=== PATIENT | female | born 1960 | race Caucasian/White ===

== ENCOUNTER 2021-02-02 09:54 | Emergency (ER) | payer MEDICARE, SELFPAY ==
[2021-02-02 09:55] VITALS: BP 104/60; PULSE 81; RESP 16; TEMP 36.6; O2SAT 100; BMI 20.3
--- NOTE | 2021-02-02 10:06 | EX.ED.VIS.UR ---
HPI HPI - URI History of Present Illness Chief Complaint: Sore Throat Informant: patient Onset/Context/Timing Onset: Days Context: Gradual Onset Timing: Continuous Current Severity: Mild Maximum Severity: Mild Associated Symptoms Associated Symptoms: Positive for Nasal Congestion, Myalgias and Nonproductive cough; Negative for Nausea, Vomiting, Diarrhea, Shortness of Breath, Chest Pain, Hemoptysis and Productive Cough Narrative Narrative: 60-year-old female no sniffing past medical history. Currently on no medications. Last started having sinus congestion and sore throat which has improved. She just feels weak all over with body aches. She is day 6 of her symptoms. She denies any vomiting or diarrhea. No dysuria. She is unvaccinated for Covid. Prior similar symptoms: Yes Recent Illness/Hospitalization: No ROS ROS ED ROS Narrative Body aches. Sore throat resolved. Nonproductive cough. Review of Systems ROS Unobtainable: Denies due to encephalopathy Constitutional Constitutional ED: Denies chills or fever(s) Eyes Eyes: Denies change in vision ENT ENT ED: Reports rhinorrhea and sore throat; Denies ear pain Cardiovascular Cardiovascular: Denies chest pain Respiratory/Chest Respiratory/Chest: Reports cough; Denies dyspnea Gastrointestinal Gastrointestinal: Denies abdominal pain, diarrhea, nausea or vomiting Genitourinary Genitourinary ED: Denies dysuria Musculoskeletal Musculoskeletal: Reports myalgias Integumentary Denies rash Neurologic Neurologic: Denies headache(s) Psychiatric Psychiatric: Denies depression Endocrine Endocrinology: Denies polyuria Hematologic/Lymphatic Hematologic/Lymphatic: Denies easy bruising Allergic/Immunologic Allergic/Immunologic ED: Denies urticaria PFSH PFSH Allergy/AdvReac Type Severity Reaction Status Date / Time No Known Allergies Allergy Verified 02/02/21 09:55 Social History Smoking Status: Never smoker EXAM Physical Exam Narrative Exam Narrative: 52-year-old female no acute distress vital signs stable afebrile pulse ox 100% on room air no hypoxia. Normal. Lungs are clear. Const Vital Signs: 02/02/21 09:55 02/02/21 10:09 Temperature 97.8 F Temperature Source Temporal Pulse Rate 81 Respiratory Rate 16 Respiratory Effort Normal Non-Labored Respiratory Pattern Normal Blood Pressure 104/60 Blood Pressure Mean 74 Pulse Ox 100 Positive well nourished and well developed; Negative for obese, cachectic or contractures General Appearance ED: well developed; Negative for cachectic, contractures, cyanotic, diaphoretic, NAD or pallor Nutritional Appearance: Negative for cachectic or obese HEENT Reports moist mucous membranes normocephalic and atraumatic; Negative for scalp tenderness Face and Sinus: Negative for sinus tenderness External Ear: external ears normal Eyes PERRL and EOMs intact bilaterally Neck no lymphadenopathy, supple, no meningeal signs and no JVD General: Negative for anterior neck swelling Resp normal respiratory effort and clear to auscultation bilaterally Auscultation: Negative for rales, rhonchi or wheezes Cardio S1 normal heart sound, S2 normal heart sound and no murmurs Rate: regular rate Rhythm: regular rhythm GI non-tender, non-distended and no masses Inspection: Negative for abdominal distention Auscultation: normoactive bowel sounds; Negative for hyperactive bowel sounds Palpation: soft; Negative for tender or guarding Back/Spine no CVA tenderness and normal ROM General Back: Negative for CVA tenderness Cervical Spine: Negative for cervical spine tenderness Thoracic Spine / Upper Back: Negative for thoracic spinal tenderness Extremity normal to inspection and full ROM General Extremety ED: Negative for cyanosis or tenderness General Extremity: Negative for cyanosis Neuro oriented x3 Sensorium / Orientation: alert, oriented to person, oriented to place and oriented to time; Negative for orientation impaired, lethargic or stuporous Motor Exam: strength 5/5 throughout Psych mental status grossly normal Mood & Affect: Negative for depressed or tearful Skin General Skin Exam: Negative for jaundice or pallor Lesions: no lesions Rashes: no rashes MDM MDM MDM Narrative Medical decision making narrative: 60-year-old female with viral syndrome type symptoms. Covid test is being obtained. I do not think she needs any imaging. M at 10:35 AM unchanged. Lab Data Lab results narrative: Rapid Covid test is negative. Discussed with patient and she did not want a PCR sent. Discharge Plan Triage Chief Complaint: Sore Throat ED Provider: Gasper Dai Dx/Rx/DC Orders Clinical Impression: Viral syndrome Instructions: ED URI, Viral, No Abx (Adult) Primary Care Provider: Care Physician,No Primary Referrals: Sean Ashford MD [STAFF PHYSICIAN] - 1 Week if not improving NOT,DEFINED [NON-STAFF] - Activity Restrictions/Additional Instructions: Plenty of fluids and rest. Motrin and Tylenol for body aches and any fevers. Follow-up with your doctor if not improving. Return emergency department if a lot worse. Disposition Disposition: Home, Self Care
[2021-02-02 10:40] VITALS: BP 118/63; PULSE 72; RESP 16; O2SAT 97
== END 2021-02-02 10:40 | disposition home or self-care (01) ==
LOC: ED 10:19
PROVIDERS: Emergency Provider Emergency Medicine
DX: J02.9 Acute pharyngitis, unspecified (principal); B34.9 Viral infection, unspecified
CPT/HCPCS: 87426; 99282

== ENCOUNTER 2021-02-10 10:07 | Inpatient (IN) | payer MEDICARE, SELFPAY ==
[2021-02-10] VITALS (15 sets, daily range): BP systolic 89–124; BP diastolic 53–73; PULSE 58–76; RESP 18–29; TEMP 36.8–37.4; O2SAT 93–100; BMI 30.2; BMI 31.4
--- NOTE | 2021-02-10 10:23 | EKG12_ITS ---
Test Reason : SOB Blood Pressure : / mmHG Vent. Rate : 060 BPM Atrial Rate : 060 BPM P-R Int : 144 ms QRS Dur : 084 ms QT Int : 412 ms P-R-T Axes : 057 062 005 degrees QTc Int : 412 ms Normal sinus rhythm Low voltage QRS Borderline ECG Confirmed by DARA CAMPBELL, GENESIS ([id number]), general expeditor MICHEAL BLAND ([id number]) on 02/15/2021 10:11:37 AM Referred By: KIMBERLEY Confirmed By:GENESIS DIAMOND MD
--- NOTE | 2021-02-10 10:26 | EX.ED.DYSGE1 ---
HPI History of Present Illness Chief Complaint: Weakness Detail of Chief Complaint: Generalized weakness, dyspnea, dyspnea on exertion cough Informant: patient Onset/Context/Timing Onset: Weeks (Onset of illness 2 to 3 weeks ago) Context: Sudden Onset Timing: Continuous Quality: Upper respiratory symptoms and loss of appetite Location: Respiratory Current Severity: Mild Maximum Severity: Severe Worsened by: Walking. Patient states she has to stop after walking 5 to 10 feet. Relieved by: Nothing Associated Symptoms Associated Symptoms: Change in taste, mild headache, slightly productive cough, subjective fever Narrative Narrative: Patient is a 60-year-old woman on no medication no allergies non-smoker who was seen on February 02. Rapid Covid at that time was negative. Patient declined PCR test. No imaging or laboratory studies were done at that time. Patient presents because of increased shortness of breath. She is only able to walk 5 to 10 feet before becoming short of breath. She denies history of PE or DVT. She denies any risk factors for PE or DVT. She denies leg pain, swelling discoloration. She states she has no appetite. Things taste different but she has not lost her taste or smell. She does report mild bifrontal head discomfort. She denies photophobia, change in vision or blurred vision. Denies ringing of ears or decreased hearing. She states initially she had rhinorrhea and congestion she no longer does. She denies sore throat. She denies chest pain. She does report dyspnea dyspnea on exertion. She does have a cough. The cough is essentially nonproductive. She does report nausea without vomiting or diarrhea. She denies dysuria, frequency, urgency or hematuria. She denies rash. Prior similar symptoms: Yes Recent Illness/Hospitalization: Yes PFSH PFS Home Medications NK 02/10/21 [History Last Taken Unknown] Allergy/AdvReac Type Severity Reaction Status Date / Time No Known Allergies Allergy Verified 02/10/21 10:11 Social History (Updated 02/10/21 @ 10:[address] Toby Ramos MD) household members: spouse Smoking Status: Never smoker substance use type: does not use ROS ROS ED Constitutional Constitutional ED: Reports chills, fever(s), subjective and sweats; Denies weight loss Eyes Eyes: Denies blurry vision, change in vision or diplopia ENT ENT ED: Denies ear pain, rhinorrhea or sore throat Cardiovascular Cardiovascular: Denies chest pain, orthopnea, palpitations or paroxysmal nocturnal dyspnea Respiratory/Chest Respiratory/Chest: Reports cough, dyspnea and dyspnea on exertion; Denies orthopnea, paroxysmal nocturnal dyspnea or sputum Gastrointestinal Gastrointestinal: Reports nausea; Denies abdominal pain, diarrhea or vomiting Genitourinary Genitourinary ED: Denies dysuria, hematuria or urinary frequency Musculoskeletal Musculoskeletal: Reports arthralgias and myalgias; Denies back pain or neck pain Integumentary Denies Abrasions or rash Neurologic Neurologic: Reports headache(s) and weakness; Denies paresthesias Endocrine Endocrinology: Denies polydipsia, polyphagia or polyuria Hematologic/Lymphatic Hematologic/Lymphatic: Denies easy bleeding or easy bruising EXAM Physical Exam Const Vital Signs: 02/10/21 10:07 02/10/21 10:30 02/10/21 10:50 Temperature 98.6 F Temperature Source Temporal Pulse Rate 76 72 Respiratory Rate 18 29 H Respiratory Effort Short of Breath Respiratory Pattern Tachypnea Normal Blood Pressure 89/53 L Blood Pressure Mean 65 Pulse Ox 93 Oxygen Delivery Method Non-Rebreather Nasal Cannula Oxygen Flow Rate (L/min) 2 02/10/21 11:55 02/10/21 12:40 02/10/21 13:54 Temperature 98.2 F Temperature Source Oral Pulse Rate 71 67 58 L Respiratory Rate 18 24 H 23 H Respiratory Effort Respiratory Pattern Blood Pressure 109/67 103/63 107/65 Blood Pressure Mean 81 76 79 Pulse Ox 95 95 97 Oxygen Delivery Method Nasal Cannula Nasal Cannula Nasal Cannula Oxygen Flow Rate (L/min) 1 1 1 Positive well nourished, well developed and obese General Appearance ED: well developed and other Patient is tachypneic and has mild pressor distress in spite of a respiratory rate of 18 documented by triage. Patient's pulse ox was 86% on room air. She is hypotensive. She does appear ill. ; Negative for cyanotic, diaphoretic or pallor Nutritional Appearance: obese HEENT Reports TM's clear and dry mucous membranes Negative for trauma or tenderness Tympanic Membrane ED: Yes TM's clear Mouth ED: Yes dry mucous membranes Mouth: dry mucous membranes Eyes PERRL and EOMs intact bilaterally General Eye ED: Negative for pale conjunctiva or scleral icterus Neck no lymphadenopathy, supple and no JVD Chest Wall palpation of chest normal Resp No normal respiratory effort and No clear to auscultation bilaterally Auscultation: rales bilateral mid and lower and wheezes expiratory wheezes and scattered wheezes (With forced expiration only) Cardio regular rate, regular rhythm, S1 normal heart sound, S2 normal heart sound and no murmurs GI normal to inspection, nondistended, normoactive bowel sounds, non-tender and non-distended; Negative for hepatosplenomegaly Auscultation: normoactive bowel sounds and hypoactive bowel sounds Palpation: soft Back/Spine no CVA tenderness Thoracic Spine / Upper Back: Negative for paraspinal muscle tenderness Extremity normal to inspection Extremity Narrative: There is no asymmetry, swelling, discoloration, leg vein distention, palpable cords or tenderness along the distribution of the deep venous system. General Extremety ED: Negative for edema or tenderness General Extremity: Negative for edema Neuro oriented x3 and CN's II-XII intact bilaterally Sensorium / Orientation: alert Psych mental status grossly normal Skin no rashes or lesions noted and no wounds General Skin Exam: Negative for jaundice or pallor MDM MDM MDM Narrative Medical decision making narrative: Clinically patient has bilateral pneumonia. She is hypotensive. There is concern for Covid. Since there is concern for Covid she only received a 500 cc bolus initially. Sepsis work-up was undertaken. She may have a concomitant bacterial on top of Covid pneumonia/viral pneumonia. Since the rapid was negative a PCR was ordered. Albuterol was ordered as well as since she had slight wheezing with forced expiration, only. Patient's hypotension improved with fluid bolus. Will give dose of antibiotics for commune acquired pneumonia. This would be discontinued with the Covid PCR was positive. Chest x-ray is consistent with Covid pneumonia. Radiologist rotation also makes comment consistent with Covid pneumonia. Patient's Covid test returned positive we will treat with Decadron and not antibiotics. Lab Data Attestation: I reviewed the patient's lab results. Lab results narrative: Patient is neutropenic. This would suggest that this is a viral infection and possibly Covid. Labs: Laboratory Results - last 24 hr 02/10/21 02/10/21 02/10/21 10:30 10:30 10:30 WBC 3.8 L RBC 4.58 Hgb 13.3 Hct 39.8 MCV 86.9 MCH 29.0 MCHC 33.4 RDW Std Deviation 40.3 RDW Coeff of Ceci 12.8 Plt Count 173 MPV 10.1 Immature Gran % (Auto) 1.100 H Neut % (Auto) 81.7 H Lymph % (Auto) 12.3 L [place] % (Auto) 4.3 Eos % (Auto) 0.3 Baso % (Auto) 0.3 Absolute Neuts (auto) 3.1 Absolute Lymphs (auto) 0.46 L Nucleated RBC % 0 Diff Path Review May foll Sodium 140 Potassium 3.6 Chloride 104 Carbon Dioxide 29.0 Anion Gap 7 BUN 15 Creatinine 0.94 Estim Creat Clear Calc 56.33 Est GFR (MDRD) Af Amer 79 Est GFR (MDRD) Non-Af 65 BUN/Creatinine Ratio 16.0 Glucose 110 H Lactic Acid 1.5 Calcium 8.4 L Total Bilirubin 0.60 AST 68 H ALT 68 H Alkaline Phosphatase 88 Total Protein 7.4 Albumin 3.1 L Globulin 4.3 H Albumin/Globulin Ratio 0.7 L COVID-19 ([facility]) 02/10/21 10:30 WBC RBC Hgb Hct MCV MCH MCHC RDW Std Deviation RDW Coeff of Ceci Plt Count MPV Immature Gran % (Auto) Neut % (Auto) Lymph % (Auto) [place] % (Auto) Eos % (Auto) Baso % (Auto) Absolute Neuts (auto) Absolute Lymphs (auto) Nucleated RBC % Diff Path Review Sodium Potassium Chloride Carbon Dioxide Anion Gap BUN Creatinine Estim Creat Clear Calc Est GFR (MDRD) Af Amer Est GFR (MDRD) Non-Af BUN/Creatinine Ratio Glucose Lactic Acid Calcium Total Bilirubin AST ALT Alkaline Phosphatase Total Protein Albumin Globulin Albumin/Globulin Ratio COVID-19 ([facility]) Detected Radiography Chest X-Ray - ED: 1 View and Read by ED Physician (Syncope was interpreted by me at 1200Patient has bilateral peripheral interstitial infiltrates consistent with Covid.) Diagnostic Testing: Clinical Impression(s) from Imaging Studies Chest X-Ray 02/10/21 11:35 IMPRESSION: Bilateral pulmonary infiltrates worse on the left side. Pneumonitis associated with Covid should be ruled out. Electronically Signed: Lorenzo Mcclellan MD at 12:18 EST , Service support , EKG Initial EKG: Attestation: I personally reviewed and interpreted this EKG as follows: Interpretation: Sinus Rhythm (Normal sinus rhythm with a rate of sixty. [place] interval is 144 ms per cures duration 84 ms. QT duration 412 ms. There is evidence of low voltage. There is a flipped T wave in lead III which is a normal variant.) Critical Care Time Critical Care Time: Yes Critical care time (excluding procedures): 30-74 minutes (33 minutes), Including time spent: (History, physical, documentation, interpretation laboratory results, and initiation of therapy.), Discussing w/Patient &/or Family/[employer], Discussing w/Consultants and Arranging Admission or Transfer Discharge Plan Triage Chief Complaint: Weakness ED Provider: Toby Ramos Dx/Rx/DC Orders Clinical Impression: Pneumonia due to 2019-nCoV, Acute respiratory failure with hypoxia, Acute hypotension Prescriptions: No Action NK RF: 0 Primary Care Provider: Care Physician,No Primary Referrals: Care Physician,No Primary [Primary Care Provider] - Disposition Disposition: Acute Care [facility]
[2021-02-10 10:46] LABS: Absolute Lymphocyte Count 0.46 X10^3/uL (0.83-4.51); Absolute Neutrophil Count 3.1 X10^3/uL (2.0-7.7); Basophil# 0.01 X10^3/uL; Basophil% 0.3 % (0-1); Eosinophil# 0.01 X10^3/uL; Eosinophils% 0.3 % (0-5); Hematocrit 39.8 % (37-47); Hemoglobin 13.3 g/dL (12.0-15.0); Lymphocyte # 0.46 X10^3/ul (0.83-4.51); Lymphocyte % 12.3 % (19-41); Mean Corp Hgb Conc 33.4 g/dL (32-36); Mean Corpuscular Volume 86.9 fL (81-99); Mean Platelet Vol. 10.1 fl (6.2-12.0); Monocyte# 0.16 X10^3/uL; Monocyte% 4.3 % (0-10); NRBC Flagged by Analyzer 0 % (0-5); Neutrophil # 3.07 X10^3/uL (2.7-7.7); Neutrophil % 81.7 % (47-70); POSITIVE DIFFERENTIAL YES; POSITIVE MORPHOLOGY YES; Platelet Count 173 K/mm3 (150-450); RBC Distribution Width CV 12.8 % (11.6-14.6); RBC Distribution Width SD 40.3 fl (35.1-43.9); Red Blood Count 4.58 M/mm3 (4.2-5.4); White Blood Count 3.8 K/mm3 (4.4-11.0)
[2021-02-10 10:47] LABS: Differential Indicated SCAN CRITERIA MET
[2021-02-10] MEDS: Albuterol 2.5 MG/3 ML VIAL.NEB. INHALATION (10:47)
[2021-02-10 11:10] LABS: ALB/GLOB Ratio 0.7 RATIO (0.9-2.4); AST(SGOT) 68 U/L (15-37); Alanine Aminotransfer ALT/SGPT 68 U/L (13-56); Albumin, Serum 3.1 g/dL (3.2-5.0); Alkaline Phosphatase 88 U/L (45-117); Anion Gap 7 (5-15); BUN 15 mg/dL (7-18); Calcium,Total 8.4 mg/dL (8.5-10.1); Chloride 104 mmol/L (98-107); Creatinine, Serum 0.94 mg/dL (0.55-1.02); EST Glomerular Filtration Rate 65 mL/min (>60); Est Glom Filt Rate - Afr Amer 79 mL/min (>60); Estimated Creatinine Clearance 56.33 ml/min; Globulin 4.3 g/dL (2.2-4.2); Glucose 110 mg/dL (74-106); Lactic Acid 1.5 mmol/L (0.4-1.9); Potassium 3.6 mmol/L (3.5-5.1); Protein, Total 7.4 g/dL (6.4-8.2); Sodium Level 140 mmol/L (136-145)
--- NOTE | 2021-02-10 11:35 | RAD_ITS ---
STUDY: X-RAY CHEST REASON FOR EXAM: Female, 60 years old. Dyspnea, cough bilateral rales TECHNIQUE: Single AP portable view of the chest. COMPARISON: None. FINDINGS: EKG electrodes are seen. There are bilateral patchy pulmonary infiltrates worse on the left side. There is a tendency toward lateral peripheral distribution. Pneumonitis associated with Covid should be ruled out There is no demonstrated pleural abnormality. Normal size heart. Normal mediastinum and verónica. Normal visualized pulmonary arteries. Normal visualized aortic arch and descending thoracic aorta. There are diffuse degenerative changes of the visualized thoracic spine. Normal visualized ribs, clavicles, and shoulders. There is no demonstrated abnormality of the visualized soft tissue structures of the upper abdomen. RAD/Chest 1 View (Portable) IMPRESSION: Bilateral pulmonary infiltrates worse on the left side. Pneumonitis associated with Covid should be ruled out. Electronically Signed: Lorenzo Mcclellan MD at 12:18 EST , Service support ,
[2021-02-10] MEDS: dexAMETHasone 4 MG Tablet 6 MG PO (12:38)
--- NOTE | 2021-02-10 16:30 | PCS.PANDOC ---
PANDEMIC DOCUMENTATION INITIATED: Date: 10/05/2020 Time: 190
--- NOTE | 2021-02-10 20:01 | PCM.HP.STD ---
HPI - General General Date of Admission: 02/10/21 HPI Narrative ARMAAN MORROW, is a 60 F who presents with ongoing weakness for 2 weeks and shortness of breath, with hypoxia. The patient was seen last week here in the ED for similar respiratory issues and had a rapid Covid test which was negative and reportedly declined PCR test. She was discharged to home but due to the weakness and worsening SOB she returned. The patient has had no recorded fevers but does have a dry cough. She has no GI complaints and she has not taken any medical therapies prior to this for presumed Covid infection. She has tried drinking herbal teas. Upon work-up in the ER she had a PCR which was positive for Covid and chest x-ray showed bilateral infiltrates consistent with COVID pneumonia. She is not a smoker or drinker and does not have any significant comorbidities Family history was reviewed and noncontributory [facility] Medical History no medical history Home Medications dextromethorphan polistirex [Delsym 12 hour] 10 ml PO Q12H 02/10/21 [History Last Taken 02/10/21] Allergy/AdvReac Type Severity Reaction Status Date / Time No Known Allergies Allergy Verified 02/10/21 10:11 Surgical History (Updated 02/10/21 @ 16:39 by Nichole Baker) History of hysterectomy Social History (Updated 02/10/21 @ 10:[address] Toby Ramos MD) household members: spouse Smoking Status: Never smoker substance use type: does not use Vital Signs Vital Signs Vital Signs: 02/10/21 10:07 02/10/21 10:30 02/10/21 10:50 Temperature 98.6 F Temperature Source Temporal Pulse Rate 76 72 Respiratory Rate 18 29 H Respiratory Effort Short of Breath Respiratory Depth Respiratory Pattern Tachypnea Normal Blood Pressure 89/53 L Blood Pressure Mean 65 Blood Pressure Source Blood Pressure Position Blood Pressure Location Pulse Ox 93 Oxygen Delivery Method Non-Rebreather Nasal Cannula Oxygen Flow Rate (L/min) 2 02/10/21 11:55 02/10/21 12:40 02/10/21 13:54 Temperature 98.2 F Temperature Source Oral Pulse Rate 71 67 58 L Respiratory Rate 18 24 H 23 H Respiratory Effort Respiratory Depth Respiratory Pattern Blood Pressure 109/67 103/63 107/65 Blood Pressure Mean 81 76 79 Blood Pressure Source Blood Pressure Position Blood Pressure Location Pulse Ox 95 95 97 Oxygen Delivery Method Nasal Cannula Nasal Cannula Nasal Cannula Oxygen Flow Rate (L/min) 1 1 1 02/10/21 15:00 02/10/21 15:50 02/10/21 16:30 Temperature 98.2 F 98.4 F Temperature Source Oral Oral Pulse Rate 72 70 61 Respiratory Rate 26 H 25 H 18 Respiratory Effort Normal Non-Labored Respiratory Depth Normal Respiratory Pattern Normal Blood Pressure 124/73 H 117/65 105/66 Blood Pressure Mean 90 82 79 Blood Pressure Source Monitor Blood Pressure Position Semi-Fowlers Blood Pressure Location Left Arm Pulse Ox 95 96 94 Oxygen Delivery Method Nasal Cannula Nasal Cannula Nasal Cannula Oxygen Flow Rate (L/min) 1 1 3 02/10/21 16:52 02/10/21 19:02 Temperature Temperature Source Pulse Rate 58 L 65 Respiratory Rate Respiratory Effort Respiratory Depth Respiratory Pattern Blood Pressure Blood Pressure Mean Blood Pressure Source Blood Pressure Position Blood Pressure Location Pulse Ox Oxygen Delivery Method Oxygen Flow Rate (L/min) Weight Weight: 182 lb 12.211 oz Body Mass Index (BMI) 31.4 Physical Exam Const alert and no apparent distress HEENT normocephalic and head/scalp atraumatic Eyes PERRL and EOMs intact bilaterally Resp normal respiratory effort Resp Narrative: no rales or rhonchi, I did appreciate crackles at base of left lobe. Auscultation: crackles Cardio regular rate and regular rhythm GI normal to inspection, nondistended, normoactive bowel sounds, soft to palpation and non-tender Neuro Sensorium / Orientation: awake and alert Speech: speech normal Psych affect normal Results Lab / Micro Data Result Diagrams: 02/10/21 10:30 02/10/21 10:30 Labs: Laboratory Results - last 24 hr 02/10/21 10:30: WBC 3.8 L, RBC 4.58, Hgb 13.3, Hct 39.8, MCV 86.9, MCH 29.0, MCHC 33.4, RDW Std Deviation 40.3, RDW Coeff of Ceci 12.8, Plt Count 173, MPV 10.1, Immature Gran % (Auto) 1.100 H, Neut % (Auto) 81.7 H, Lymph % (Auto) 12.3 L, [place] % (Auto) 4.3, Eos % (Auto) 0.3, Baso % (Auto) 0.3, Absolute Neuts (auto) 3.1, Absolute Lymphs (auto) 0.46 L, Nucleated RBC % 0, Diff Path Review May foll 02/10/21 10:30: Sodium 140, Potassium 3.6, Chloride 104, Carbon Dioxide 29.0, Anion Gap 7, BUN 15, Creatinine 0.94, Estim Creat Clear Calc 56.33, Est GFR (MDRD) Af Amer 79, Est GFR (MDRD) Non-Af 65, BUN/Creatinine Ratio 16.0, Glucose 110 H, Calcium 8.4 L, Total Bilirubin 0.60, AST 68 H, ALT 68 H, Alkaline Phosphatase 88, Total Protein 7.4, Albumin 3.1 L, Globulin 4.3 H, Albumin/Globulin Ratio 0.7 L 02/10/21 10:30: Lactic Acid 1.5 02/10/21 10:30: COVID-19 ([facility]) Detected Radiology Impression Chest X-Ray 02/10/21 11:35 IMPRESSION: Bilateral pulmonary infiltrates worse on the left side. Pneumonitis associated with Covid should be ruled out. Electronically Signed: Lorenzo Mcclellan MD at 12:18 EST , Service support , Assessment & Plan Assessment/Plan (1) Acute respiratory failure with hypoxia: (2) Pneumonia due to 2019-nCoV: PLAN: Acute hypoxic respiratory failure with COVID pneumonia infection -Continue contact precautions given positive test for COVID -Incentive spirometry, duo nebs every 6 and chest physiotherapy -Continue oxygen therapy, Maintain SaO2 >90% -No signs of bacterial infection at this time. -Low suspicion for PE at this time -Patient is past remdesivir given onset of symptoms > 10 days ago -Continue Decadron daily x 9 more days. -Not volume overloaded at this time however would not give IV fluids, encourage p.o. intake -Transcient hypotension responded well to small bolus. There is no further hypotension. Diet: regular DVT prophylaxis: Lovenox We had an extended discussion regarding CODE STATUS . At this time she is full code, however the patient does have documents at home and I encouraged her to bring those in and discuss with physician further. Hari Robison MD Charges/Coding Visit Charges Inpatient E&M: 08051 Init Hosp L2
[2021-02-10] MEDS: Ipratropium/Albuterol Sulfate 3 ML AMPUL.NEB INHALATION (20:58)
[2021-02-11] VITALS (13 sets, daily range): BP systolic 95–107; BP diastolic 60–68; PULSE 47–77; RESP 16–21; TEMP 36.7–37.1; O2SAT 82–98
[2021-02-11 07:15] LABS: Absolute Lymphocyte Count 0.71 X10^3/uL (0.83-4.51); Absolute Neutrophil Count 2.1 X10^3/uL (2.0-7.7); Hematocrit 33.1 % (37-47); Hemoglobin 11.5 g/dL (12.0-15.0); Lymphocyte # 0.71 X10^3/ul (0.83-4.51); Lymphocyte % 21.8 % (19-41); Mean Corp Hgb Conc 34.7 g/dL (32-36); Mean Corpuscular Hgb 29.9 pg (27.0-32.0); Mean Corpuscular Volume 86.2 fL (81-99); Mean Platelet Vol. 10.1 fl (6.2-12.0); Monocyte# 0.37 X10^3/uL; Monocyte% 11.3 % (0-10); NRBC Flagged by Analyzer 0 % (0-5); Neutrophil # 2.14 X10^3/uL (2.7-7.7); Neutrophil % 65.7 % (47-70); POSITIVE MORPHOLOGY YES; Platelet Count 189 K/mm3 (150-450); RBC Distribution Width CV 12.7 % (11.6-14.6); Red Blood Count 3.84 M/mm3 (4.2-5.4); White Blood Count 3.3 K/mm3 (4.4-11.0)
[2021-02-11 07:19] LABS: Differential Indicated SCAN CRITERIA MET
[2021-02-11] MEDS: Ipratropium/Albuterol Sulfate 3 ML AMPUL.NEB INHALATION ×3 (07:22→21:10)
[2021-02-11 07:43] LABS: Anion Gap 9 (5-15); BUN 16 mg/dL (7-18); Calcium,Total 8.3 mg/dL (8.5-10.1); Chloride 108 mmol/L (98-107); Creatinine, Serum 0.73 mg/dL (0.55-1.02); EST Glomerular Filtration Rate 87 mL/min (>60); Est Glom Filt Rate - Afr Amer 105 mL/min (>60); Estimated Creatinine Clearance 72.54 ml/min; Glucose 94 mg/dL (74-106); Magnesium 2.3 mg/dL (1.6-2.6); Potassium 4.1 mmol/L (3.5-5.1); Sodium Level 143 mmol/L (136-145)
[2021-02-11 08:17] LABS: Atypical Lymphocyte 1+ %
[2021-02-11 08:18] LABS: Platelet Estimate ADEQUATE (ADEQ); Red Cell Morphology NORM C+C NORMAL (NORM C&C)
[2021-02-11] MEDS: dexAMETHasone 4 MG Tablet 6 MG PO (09:28)
[2021-02-11] MEDS: Enoxaparin 40 MG/0.4 ML Syringe SC (09:28)
--- NOTE | 2021-02-11 12:47 | CASEMGMT ---
RN CM called patient for initial transition planning/care coordination assessment. PASHA ALONSO introduced self and role at [facility]. Patient is alert and oriented. Patient willing to participate in assessment and is able to answer all questions appropriately. Care providers, pharmacy, and demographics verified. Patient wishes to discharge home, denies need for home health at this time. Patient states she has no further needs or concerns at this time. CM to follow for discharge planning needs that may arise. PCP: No PCP, CM to provide list Specialists: none Preferred Pharmacy: [facility] retail at discharge. Insurance: self pay Prescription Benefit: none Living Will/HPOA: yes, ferny Mortensen LNOK: Living Arrangements: Patient states she lives with in a 2 story home. Patient states she is independent and able to ambulate stairs. Transportation: self, DME/HHC: Patient states she has raised toilet and grab bars at home. Patient denies previous HHC or SNF. Patient states she has no preferences for DME. Disposition Plan: Patient to discharge home with family support and follow-up plans in place. Will monitor for home oxygen at discharge. Akiko OSORIO, RN, CM
--- NOTE | 2021-02-11 13:48 | CASEMGMT ---
RN CM NOTE: Green sheet placed on chart for O2, if needed @ d/c. Speedy BSN RN CM
[2021-02-11 14:01] LABS: Pathologist Review Reviewed
--- NOTE | 2021-02-11 16:53 | PN.HOSP_ITS ---
Subjective Subjective Doing better than when she came in. Maintaining her oxygen sats on 3 L nasal cannula Objective Data Objective Data Vital Signs: Vital Signs Temp Pulse Resp BP Pulse Ox 98.6 F 63 18 98/63 96 02/11/21 15:25 02/11/21 15:25 02/11/21 15:25 02/11/21 15:25 02/11/21 15:25 Oxygen Flow Rate (L/min) [ 6 AMBULATING with Oxygen #2] Oxygen Flow Rate (L/min) [ 5 AMBULATING with Oxygen #1] Oxygen Flow Rate (L/min) [At 4 REST with Oxygen] Oxygen Flow Rate (L/min) 3 Oxygen Delivery Method Nasal Cannula Weight: 182 lb 12.211 oz Body Mass Index (BMI) 31.4 Intake & Output: Intake and Output for Last 24 Hours 02/10/21 02/11/21 02/12/21 03:59 03:59 03:59 Intake Total 800 / 800 780 / 780 Balance 800 / 800 780 / 780 Lab / Micro Data Result Diagrams: 02/11/21 07:00 02/11/21 07:00 Labs: Laboratory Results - last 24 hr 02/10/21 10:30: Diff Path Review Reviewed 02/11/21 07:00: WBC 3.3 L, RBC 3.84 L, Hgb 11.5 L, Hct 33.1 L, MCV 86.2, MCH 29.9, MCHC 34.7, RDW Std Deviation 40.0, RDW Coeff of Ceci 12.7, Plt Count 189, MPV 10.1, Immature Gran % (Auto) 1.200 H, Neut % (Auto) 65.7, Lymph % (Auto) 21.8, [place] % (Auto) 11.3 H, Eos % (Auto) 0.0, Baso % (Auto) 0.0, Absolute Neuts (auto) 2.1, Absolute Lymphs (auto) 0.71 L, Nucleated RBC % 0, Atypical Lymphocytes 1+, Platelet Estimate ADEQUATE, RBC Morphology NORM C+C 02/11/21 07:00: Sodium 143, Potassium 4.1, Chloride 108 H, Carbon Dioxide 26.0, Anion Gap 9, BUN 16, Creatinine 0.73, Estim Creat Clear Calc 72.54, Est GFR (MDRD) Af Amer 105, Est GFR (MDRD) Non-Af 87, BUN/Creatinine Ratio 22.0 H, Glucose 94, Calcium 8.3 L, Magnesium 2.3 Physical Exam Const alert, oriented x3 and no apparent distress General Appearance: cooperative HEENT normocephalic and moist oral mucous membranes Eyes PERRL, EOMs intact bilaterally and conjunctivae normal Neck supple and no JVD Resp normal respiratory effort, no retractions and no use of accessory muscles Auscultation: crackles; Negative for rales, rhonchi or wheezes Cardio regular rate, regular rhythm, S1 normal heart sound, S2 normal heart sound and no murmurs GI soft to palpation, non-tender and non-distended; Negative for hepatosplenomegaly Extremity no clubbing, cyanosis or edema Skin no rashes or lesions noted Neuro no focal motor deficits and no sensory deficits noted Psych affect normal Appearance: appropriate Assessment & Plan Assessment/Plan (1) Acute respiratory failure with hypoxia: (2) Pneumonia due to 2019-nCoV: PLAN: 1. Acute hypoxic respiratory failure secondary to COVID-19 pneumonia ?Continue to encourage incentive spirometry and proning ?Continue with Decadron, symptoms started about 2 weeks ago therefore she is outside the window for remdesivir ?There is low suspicion for PE however Covid is hypercoagulable earful obtain a D-dimer and if elevated proceed with a CTA of the chest ?Ambulatory pulse ox demonstrated the need of 6 L to maintain 84% therefore this combined with her crackles on exam will provide her with a little bit of Lasix DVT: Lovenox Charges/Coding Visit Charges Inpatient E&M: 80667 Subs Hosp L2
[2021-02-11] MEDS: Furosemide 20 MG/2 ML VIAL IV (17:14)
[2021-02-11] MEDS: 0.9% Saline Lock 10 ML Syringe IV (17:14)
--- NOTE | 2021-02-11 18:31 | CM.ED ---
SW Note Referral Source: PCU SW Referral Reason: Self Pay Patient is self pay. TALITA spoke to Nichole Patel and requested that she give patient the self pay packet. Nichole said to put it in her box and she will give it to patient. TALITA remains available if additional needs arise. Plan: Self Pay packet provided Preeti HELLER
[2021-02-11 18:56] LABS: D-Dimer Quantitative (DVT/PE) 1.89 FEU/ug/m (0.27-0.49)
--- NOTE | 2021-02-11 19:39 | CT_ITS ---
EXAM: CT ANGIOGRAPHY CHEST WITHOUT AND WITH INTRAVENOUS CONTRAST CLINICAL INDICATION: Elevated D-dimer TECHNIQUE: Helically acquired angiography images were obtained of the chest without and with intravenous contrast. CTDIvol = ( 11.07 ) mGy, DLP = ( 377.36 ) mGycm This CT exam was performed using one or more of the following dose reduction techniques: automated exposure control, adjustment of the mA and/or kV according to patient size, and/or use of iterative reconstruction technique. This report was created using [employer] report generation technology. MIP reconstructed images were created and reviewed. CONTRAST: IV 100mL Isovue-370 COMPARISON: None. FINDINGS: PULMONARY ARTERIES: No PE. Normal in caliber. No evidence of pulmonary embolism. AORTA: Unremarkable. Normal in caliber. No evidence of dissection. GREAT VESSELS OF AORTIC ARCH: Unremarkable. Normal in caliber. No evidence of dissection. LUNGS AND PLEURAL SPACES: Bilateral multilobar infiltrates. No mass. No pleural effusion or thickening. No pneumothorax. HEART: Unremarkable. Heart size is normal. No pericardial effusion. No signs of right heart strain, ratio of right ventricle to left ventricle measures less than 1. MEDIASTINUM: Unremarkable. No mediastinal or hilar adenopathy. Esophagus is unremarkable. No hiatal hernia. THYROID: Unremarkable. No thyroid lesions. BONES/JOINTS: Unremarkable. No suspicious lytic or blastic abnormality. CT/CTA Chest W/WO Contrast IMPRESSION: Bilateral multilobar pneumonia with no PE. Electronically Signed: Humberto Saba MD at 21:38 EST Tel , Service support ,
[2021-02-12] VITALS (14 sets, daily range): BP systolic 100–116; BP diastolic 62–72; PULSE 48–64; RESP 16–20; TEMP 36.8–37.4; O2SAT 84–97
[2021-02-12 06:35] LABS: Absolute Lymphocyte Count 0.92 X10^3/uL (0.83-4.51); Absolute Neutrophil Count 3.4 X10^3/uL (2.0-7.7); Basophil# 0.02 X10^3/uL; Basophil% 0.4 % (0-1); Hematocrit 34.5 % (37-47); Hemoglobin 11.4 g/dL (12.0-15.0); Lymphocyte # 0.92 X10^3/ul (0.83-4.51); Lymphocyte % 19.1 % (19-41); Mean Corpuscular Hgb 28.9 pg (27.0-32.0); Mean Corpuscular Volume 87.6 fL (81-99); Mean Platelet Vol. 10.3 fl (6.2-12.0); Monocyte# 0.47 X10^3/uL; Monocyte% 9.8 % (0-10); NRBC Flagged by Analyzer 0 % (0-5); Neutrophil # 3.35 X10^3/uL (2.7-7.7); Neutrophil % 69.5 % (47-70); POSITIVE MORPHOLOGY YES; Platelet Count 240 K/mm3 (150-450); RBC Distribution Width CV 12.3 % (11.6-14.6); RBC Distribution Width SD 39.6 fl (35.1-43.9); Red Blood Count 3.94 M/mm3 (4.2-5.4); White Blood Count 4.8 K/mm3 (4.4-11.0)
[2021-02-12 06:41] LABS: Differential Indicated SCAN CRITERIA MET
[2021-02-12 06:48] LABS: Differential Comment SCANNED
[2021-02-12 07:01] LABS: Anion Gap 6 (5-15); BUN 25 mg/dL (7-18); BUN/Creat Ratio 29.6 RATIO (10-20); Calcium,Total 8.3 mg/dL (8.5-10.1); Chloride 107 mmol/L (98-107); Creatinine, Serum 0.84 mg/dL (0.55-1.02); EST Glomerular Filtration Rate 73 mL/min (>60); Est Glom Filt Rate - Afr Amer 89 mL/min (>60); Estimated Creatinine Clearance 63.04 ml/min; Glucose 102 mg/dL (74-106); Magnesium 2.1 mg/dL (1.6-2.6); Potassium 4.2 mmol/L (3.5-5.1); Sodium Level 142 mmol/L (136-145)
[2021-02-12] MEDS: Ipratropium/Albuterol Sulfate 3 ML AMPUL.NEB INHALATION ×2 (07:25→20:33)
[2021-02-12] MEDS: 0.9% Saline Lock 10 ML Syringe IV (10:17)
[2021-02-12] MEDS: Enoxaparin 40 MG/0.4 ML Syringe SC (10:17)
[2021-02-12] MEDS: dexAMETHasone 4 MG Tablet 6 MG PO (10:18)
--- NOTE | 2021-02-12 13:20 | PN.HOSP_ITS ---
Subjective Subjective Patient seen and examined. She had no active complaints and felt much better. Patient was on only 1 L of oxygen. Plan was to potentially discharge her home. However with ambulation her oxygen dropped significantly and he took 6 L of oxygen to get her up to 90%. We will therefore hold discharge for today. She has otherwise remained hemodynamically stable. Objective Data Objective Data Vital Signs: Vital Signs Temp Pulse Resp BP Pulse Ox 98.9 F 64 18 102/62 96 02/12/21 10:25 02/12/21 11:00 02/12/21 10:25 02/12/21 10:25 02/12/21 12:22 Oxygen Flow Rate (L/min) [At 0 REST on Room Air] Oxygen Flow Rate (L/min) [ 6 AMBULATING with Oxygen #2] Oxygen Flow Rate (L/min) [ 2 AMBULATING with Oxygen #1] Oxygen Flow Rate (L/min) [At 2 REST with Oxygen] Oxygen Flow Rate (L/min) 2 Oxygen Delivery Method High Flow Weight: 182 lb 12.211 oz Body Mass Index (BMI) 31.4 Intake & Output: Intake and Output for Last 24 Hours 02/10/21 02/11/21 02/12/21 23:59 23:59 23:59 Intake Total 500 / 800 1640 / 1640 360 / 360 Balance 500 / 800 1640 / 1640 360 / 360 Lab / Micro Data Result Diagrams: 02/12/21 06:20 02/12/21 06:20 Labs: Laboratory Results - last 24 hr 02/10/21 10:30: Diff Path Review Reviewed 02/11/21 17:54: D-Dimer Quant (PE/DVT) 1.89 H* 02/12/21 06:20: WBC 4.8, RBC 3.94 L, Hgb 11.4 L, Hct 34.5 L, MCV 87.6, MCH 28.9, MCHC 33.0, RDW Std Deviation 39.6, RDW Coeff of Ceci 12.3, Plt Count 240, MPV 10.3, Immature Gran % (Auto) 1.200 H, Neut % (Auto) 69.5, Lymph % (Auto) 19.1, [place] % (Auto) 9.8, Eos % (Auto) 0.0, Baso % (Auto) 0.4, Absolute Neuts (auto) 3.4, Absolute Lymphs (auto) 0.92, Nucleated RBC % 0, Differential Comment SCANNED 02/12/21 06:20: Sodium 142, Potassium 4.2, Chloride 107, Carbon Dioxide 29.0, Anion Gap 6, BUN 25 H, Creatinine 0.84, Estim Creat Clear Calc 63.04, Est GFR (MDRD) Af Amer 89, Est GFR (MDRD) Non-Af 73, BUN/Creatinine Ratio 29.6 H, Glucose 102, Calcium 8.3 L, Magnesium 2.1 Radiography Diagnostic Testing: Radiology Impression Chest CTA 02/11/21 19:39 IMPRESSION: Bilateral multilobar pneumonia with no PE. Electronically Signed: Humberto Saba MD at 21:38 EST Tel , Service support , Physical Exam Const alert, oriented x3 and no apparent distress Exam Limitations: no limitations HEENT head/scalp atraumatic and moist oral mucous membranes Head and Scalp: normocephalic Eyes PERRL, EOMs intact bilaterally and conjunctivae normal Neck no lymphadenopathy, supple and no JVD Resp Resp Narrative: Diminished breath sounds bibasilarly. No wheezes or crackles. on 1L of oxygen. Cardio regular rate, regular rhythm, S1 normal heart sound, S2 normal heart sound and no murmurs GI normal to inspection, nondistended, normoactive bowel sounds, soft to palpation and non-tender Extremity normal to inspection, full ROM and no clubbing, cyanosis or edema Peripheral Pulses: Yes pulses 2+ throughout Skin no rashes or lesions noted Neuro oriented x3, CN's II-XII intact bilaterally and moves all extremities Sensorium / Orientation: awake and alert Psych Psych Narrative: flat affect Assessment & Plan Assessment/Plan (1) Pneumonia due to 2019-nCoV: (2) Acute respiratory failure with hypoxia: PLAN: #Acute hypoxic respiratory failure due to covid 19 pneumonia * Is on 1 L today. However with ambulation she required 6 L of oxygen to get up to just 90%. * Titrate oxygen to maintain saturation above 90%. Out of window for remdesivir. * Did get some Lasix to help with diuresis and to help maintain an euvolemic state. * I do think it is prudent to keep patient for another day to further optimise her lung function. * #Elevated D-dimer: D-dimer was 1.89. Likely due to Covid. On lovenox. #DVT prophylaxis; lovenox Charges/Coding Visit Charges Inpatient E&M: 50524 Subs Hosp L2
[2021-02-13] VITALS (9 sets, daily range): BP systolic 100–102; BP diastolic 54–64; PULSE 43–65; RESP 16–18; TEMP 36.9–37.1; O2SAT 87–97
[2021-02-13 06:05] LABS: Absolute Lymphocyte Count 1.17 X10^3/uL (0.83-4.51); Absolute Neutrophil Count 3.4 X10^3/uL (2.0-7.7); Basophil# 0.01 X10^3/uL; Basophil% 0.2 % (0-1); Eosinophil# 0.01 X10^3/uL; Eosinophils% 0.2 % (0-5); Hematocrit 33.3 % (37-47); Hemoglobin 11.1 g/dL (12.0-15.0); Lymphocyte # 1.17 X10^3/ul (0.83-4.51); Lymphocyte % 22.7 % (19-41); Mean Corp Hgb Conc 33.3 g/dL (32-36); Mean Corpuscular Hgb 29.4 pg (27.0-32.0); Mean Corpuscular Volume 88.3 fL (81-99); Mean Platelet Vol. 10.3 fl (6.2-12.0); Monocyte# 0.48 X10^3/uL; Monocyte% 9.3 % (0-10); NRBC Flagged by Analyzer 0 % (0-5); Neutrophil # 3.38 X10^3/uL (2.7-7.7); Neutrophil % 65.5 % (47-70); POSITIVE MORPHOLOGY YES; Platelet Count 233 K/mm3 (150-450); RBC Distribution Width CV 12.6 % (11.6-14.6); RBC Distribution Width SD 40.2 fl (35.1-43.9); Red Blood Count 3.77 M/mm3 (4.2-5.4); White Blood Count 5.2 K/mm3 (4.4-11.0)
[2021-02-13 06:06] LABS: Differential Indicated SCAN CRITERIA MET
[2021-02-13 06:30] LABS: Anion Gap 4 (5-15); BUN 26 mg/dL (7-18); BUN/Creat Ratio 28.4 RATIO (10-20); Calcium,Total 8.3 mg/dL (8.5-10.1); Chloride 110 mmol/L (98-107); Creatinine, Serum 0.91 mg/dL (0.55-1.02); EST Glomerular Filtration Rate 67 mL/min (>60); Est Glom Filt Rate - Afr Amer 81 mL/min (>60); Estimated Creatinine Clearance 58.19 ml/min; Glucose 89 mg/dL (74-106); Magnesium 2.1 mg/dL (1.6-2.6); Potassium 4.2 mmol/L (3.5-5.1); Sodium Level 144 mmol/L (136-145)
[2021-02-13 06:31] LABS: Differential Comment SCANNED
[2021-02-13] MEDS: Ipratropium/Albuterol Sulfate 3 ML AMPUL.NEB INHALATION ×2 (07:07→13:51)
[2021-02-13] MEDS: dexAMETHasone 4 MG Tablet 6 MG PO (09:02)
[2021-02-13] MEDS: Enoxaparin 40 MG/0.4 ML Syringe SC (09:02)
--- NOTE | 2021-02-13 12:21 | PCM.DC.SUM ---
Providers Date of Admission: 02/10/21 Primary Care Physician: Tasha Primary Care Phys Reason For Visit: COVID pneumonia Diagnosis Discharge Diagnosis (1) Pneumonia due to 2019-nCoV: Status: Acute Code(s): U07.1 - COVID-19; J12.82 - Pneumonia due to coronavirus disease 2019 (2) Acute respiratory failure with hypoxia: Status: Acute Code(s): J96.01 - Acute respiratory failure with hypoxia Medications at Discharge Home Medications dextromethorphan polistirex [Delsym 12 hour] 10 ml PO Q12H 02/10/21 apixaban [Eliquis] 2.5 mg PO BID #28 tab 02/13/21 dexamethasone 6 mg PO DAILY #7 tab 02/13/21 Hospital Course Operations None Procedures None Summary of Care Provided Minutes Spent on Discharge: 45 Hospital Course: Patient is a 60-year-old female no significant past medical history was admitted through the ED on 02/10/2021 with complaint of worsening shortness of breath and weakness which have been going on for about 2 weeks. Patient had been seen in the ED a few days prior and had had a negative Covid antigen test. At that time she refused a PCR test. She was discharged home but subsequently had worsening shortness of breath as well as a dry cough. She however denied any fever. Arrival in the ED, PCR test for Covid was positive and chest x-ray showed bilateral infiltrates consistent with Covid. She was admitted and managed for acute hypoxic respiratory failure due to COVID-19 pneumonia. Her D-dimer was also elevated at 1.89 but CTA of the chest was negative for PE. Patient was out of window for remdesivir. Patient shortness of breath gradually improved and she was weaned down to 1 L of oxygen. With ambulation she required 4 L of oxygen. She was discharged on 02/13/2021 on p.o. prednisone to complete a 10-day course. She was also discharged on p.o. Eliquis 2.5 mg twice daily for 2 weeks as thromboprophylaxis in light of elevated D-dimer. She is to follow-up with her primary care doctor in 1 to 2 weeks. She is to remain in isolation till February 22, 2021 to complete a 20-day isolation since symptoms started. Patient seen and examined prior to discharge. She had no active complaints. Review of systems otherwise negative. Labs and vitals reviewed. Home medication reviewed and reconciled. Physical Exam Const alert, oriented x3 and no apparent distress General Appearance: cooperative Exam Limitations: no limitations HEENT normocephalic, head/scalp atraumatic and moist oral mucous membranes Eyes PERRL, EOMs intact bilaterally and conjunctivae normal Neck no lymphadenopathy, supple and no JVD Resp normal respiratory effort, no retractions and no use of accessory muscles Resp Narrative: Diminished breath sounds bibasilarly. No wheezes or crackles. on 1L of oxygen. Auscultation: crackles; Negative for rales, rhonchi or wheezes Cardio regular rate, regular rhythm, S1 normal heart sound, S2 normal heart sound and no murmurs GI normal to inspection, nondistended, normoactive bowel sounds, soft to palpation, non-tender and non-distended; Negative for hepatosplenomegaly Extremity normal to inspection, full ROM and no clubbing, cyanosis or edema Skin no rashes or lesions noted Neuro oriented x3, CN's II-XII intact bilaterally, moves all extremities, no focal motor deficits and no sensory deficits noted Sensorium / Orientation: awake and alert Speech: speech normal Psych affect normal Psych Narrative: flat affect Appearance: appropriate Weight / BMI Weight Weight: 182 lb 12.211 oz Body Mass Index (BMI) 31.4 ABG / Lab / Microbiology Data Result Diagrams: 02/13/21 05:40 02/13/21 05:40 Laboratory: Laboratory Results - last 24 hr 02/13/21 05:40: WBC 5.2, RBC 3.77 L, Hgb 11.1 L, Hct 33.3 L, MCV 88.3, MCH 29.4, MCHC 33.3, RDW Std Deviation 40.2, RDW Coeff of Ceci 12.6, Plt Count 233, MPV 10.3, Immature Gran % (Auto) 2.100 H, Neut % (Auto) 65.5, Lymph % (Auto) 22.7, [place] % (Auto) 9.3, Eos % (Auto) 0.2, Baso % (Auto) 0.2, Absolute Neuts (auto) 3.4, Absolute Lymphs (auto) 1.17, Nucleated RBC % 0, Differential Comment SCANNED 02/13/21 05:40: Sodium 144, Potassium 4.2, Chloride 110 H, Carbon Dioxide 30.0, Anion Gap 4 L, BUN 26 H, Creatinine 0.91, Estim Creat Clear Calc 58.19, Est GFR (MDRD) Af Amer 81, Est GFR (MDRD) Non-Af 67, BUN/Creatinine Ratio 28.4 H, Glucose 89, Calcium 8.3 L, Magnesium 2.1 D/C Instructions Discharge Diet: No restrictions Discharge Activity: Return to Normal Activity Weight Bearing Status: Weight bearing as tolerated Call your doctor if you observe: Shortness of breath, Dizziness, Swelling in the ankles and Chest pain Meaningful Use Info Meaningful Use Diagnoses (Choose all that apply): None applicable Discharge Plan Admission Admit Date/Time: 02/10/21 20:10 Primary Reason for Your Visit: acute hypoxic respiratory failure due to COVID Attending Provider: Yohana Ordoñez Primary Care Provider: Care PhysicianTasha Primary Instructions Additional Instructions / Restrictions: remain in isolation till February 22, 2021 to complete a 20 day course of isolation Discharge Orders/Prescriptions Prescriptions: New dexamethasone 4 mg Tablet 6 mg PO DAILY Qty: 7 RF: 0 Eliquis 2.5 mg tablet 2.5 mg PO BID Qty: 28 RF: 0 Continued dextromethorphan polistirex [Delsym 12 hour] 30 mg/5 mL Suspension,Extended Rel 12 Hr 10 ml PO Q12H RF: 0 Referrals / Follow Up: Care Physician,No Primary [Primary Care Provider] - Disposition Disposition (needs filled in before D/C Order can be placed): Home, Self Care Charges/Coding Visit Charges Inpatient E&M: 54613 Disch Hosp
--- NOTE | 2021-02-25 14:10 | CASEMGMT ---
This RN CM received call back from pt after message left for D/C f/u phone call. Pt states has been doing well since discharge and states no questions regarding d/c instructions/medications. Pt states has been wearing home oxygen and was provided info for [facility] for f/u, voices understanding. Pt states has been checking oxygen level at home and it has been good. Pt voices no further questions/concerns/needs. SStaten RN CM
== END 2021-02-13 15:20 | disposition home or self-care (01) | DRG 177 ==
LOC: ED 15:17 → PCU 16:27
PROVIDERS: Family Medicine; Admitting Provider Hospitalist; Emergency Provider Emergency Medicine; Visit Provider Student in an Organized Health Care Education/Training Program
DX: U07.1 COVID-19 (principal); J12.82 Pneumonia due to coronavirus disease 2019; J96.01 Acute respiratory failure with hypoxia; I95.9 Hypotension, unspecified; R79.1 Abnormal coagulation profile; Z79.01 Long term (current) use of anticoagulants
CPT/HCPCS: 36415; 71045; 71275; 80048; 80053; 83605; 83735; 85025; 85379; 87635; 93005; 94640; 94667; 94668; 97110; 97116; 97162; 99251; 99285; Q9967; U0005; A4216; G0463; J1940; U0003

== ENCOUNTER 2021-03-03 14:21 | Emergency (ER) | payer MEDICARE, SELFPAY ==
[2021-03-03] VITALS (7 sets, daily range): BP systolic 108–145; BP diastolic 64–78; PULSE 88–97; RESP 16–25; TEMP -12.8–37.8; O2SAT 95–98; BMI 31.9
--- NOTE | 2021-03-03 14:44 | EKG12_ITS ---
Test Reason : CP Blood Pressure : / mmHG Vent. Rate : 088 BPM Atrial Rate : 088 BPM P-R Int : 130 ms QRS Dur : 076 ms QT Int : 338 ms P-R-T Axes : 049 046 -18 degrees QTc Int : 408 ms Normal sinus rhythm ST & T wave abnormality, consider inferior ischemia Abnormal ECG Confirmed by VIRGIE CAMPBELL, ROBEL ([id number]), food editor MICHEAL BLAND ([id number]) on 03/04/2021 1:40:13 PM Referred By: EVITA Confirmed By:HIREN GARVIN MD
--- NOTE | 2021-03-03 14:55 | ED.VIS.CHEST ---
HPI History of Present Illness Chief Complaint: Chest Pain Informant: patient and spouse/S.O. Onset/Context/Timing Onset: Days Activity at onset: gradual Timing: Continuous Current Severity: Mild Maximum Severity: Mild Narrative Narrative: 60-year-old female recent hospitalization for COVID pneumonitis and was discharged on . She had a 4-day admission. She is currently on home oxygen. She was worked up while in the hospital and did not have a pulmonary embolus. She was on Decadron that is since run out. She states she has had recurrent shortness of breath with squeezing discomfort. Denies any hemoptysis. Has never had a DVT or PE and other than her COVID states she is healthy. She denies any leg swelling. Prior Similar Symptoms: Yes Recent Illness/Hospitalization: Yes CVD Risk Factors: Negative for Hypertension, Diabetes, Hypercholesterolemia and Smoking PE Risk Factors: Positive for Recent Immobilization; Negative for Recent Travel/Surgery, Prior DVT or PE, Cancer and OCP + Smoking + >/=35 TAD Risk Factors: Negative for Marfan's Syndrome [facility] Medical History Acute respiratory failure with hypoxia Pneumonia due to 2018-nCoV Home Medications dextromethorphan polistirex [Delsym 12 hour] 10 ml PO Q12H 02/10/21 [History Last Taken 02/10/21] apixaban [Eliquis] 2.5 mg PO BID #28 tab 02/13/21 [Rx Last Taken Unknown] apixaban [Eliquis] 2.5 mg PO BID #28 tab 02/13/21 [Rx Last Taken Unknown] dexamethasone 6 mg PO DAILY #7 tab 02/13/21 [Rx Last Taken Unknown] dexamethasone [Decadron] 6 mg PO DAILY #7 tab 02/13/21 [Rx Last Taken Unknown] dexamethasone [Decadron] 6 mg PO DAILY 9 Days #9 tab 03/03/21 [Rx Last Taken Unknown] Allergy/AdvReac Type Severity Reaction Status Date / Time No Known Allergies Allergy Verified 03/03/21 14:21 Surgical History History of hysterectomy Social History household members: spouse Smoking Status: Never smoker substance use type: does not use ROS ROS ED ROS Narrative Shortness of breath. Chest pain. Review of Systems ROS Unobtainable: Denies due to encephalopathy Constitutional Constitutional ED: Denies fever(s) Eyes Eyes: Denies none ENT ENT ED: Denies ear pain, rhinorrhea or sore throat Cardiovascular Cardiovascular: Reports as per HPI and chest pain Respiratory/Chest Respiratory/Chest: Reports dyspnea; Denies cough, dyspnea on exertion or sputum Gastrointestinal Gastrointestinal: Denies abdominal pain, diarrhea, nausea or vomiting Genitourinary Genitourinary ED: Denies dysuria Musculoskeletal Musculoskeletal: Denies myalgias Integumentary Denies rash Neurologic Neurologic: Denies headache(s) Psychiatric Psychiatric: Denies depression Endocrine Endocrinology: Denies polyuria Hematologic/Lymphatic Hematologic/Lymphatic: Denies easy bruising Allergic/Immunologic Allergic/Immunologic ED: Denies urticaria EXAM Physical Exam Narrative Exam Narrative: 32-year-old female status post COVID admitted and discharged on . Currently on no medications. Complaining of lower chest discomfort and shortness of breath. Had a negative CTA of her chest for pulmonary emboli when she was hospitalized. Const Vital Signs: 03/03/21 14:22 03/03/21 14:31 03/03/21 14:56 Temperature 97.2 F L 8.9 F L Temperature Source Temporal Temporal Pulse Rate 91 89 Respiratory Rate 25 H 22 H Respiratory Effort Short of Breath Blood Pressure 130/76 H 108/64 Blood Pressure Mean 94 78 Pulse Ox 97 98 98 Oxygen Delivery Method Room Air Room Air Room Air 03/03/21 15:26 03/03/21 15:31 03/03/21 16:02 Temperature 98.9 F 100.1 F H 99.6 F H Temperature Source Temporal Oral Temporal Pulse Rate 97 95 Respiratory Rate 18 16 Respiratory Effort Blood Pressure 112/73 116/74 Blood Pressure Mean 86 88 Pulse Ox 98 95 Oxygen Delivery Method Room Air Room Air Positive well nourished, well developed and obese; Negative for cachectic, contractures or unkempt General Appearance ED: well developed and NAD; Negative for unkempt, cachectic, contractures or pallor Nutritional Appearance: obese; Negative for cachectic HEENT Reports moist mucous membranes normocephalic and atraumatic; Negative for trauma or tenderness Eyes PERRL and EOMs intact bilaterally General Eye ED: Negative for pale conjunctiva or scleral icterus Neck no lymphadenopathy, supple and no JVD General: Negative for tenderness Chest Wall inspection of chest normal and palpation of chest normal Chest: Negative for tenderness Resp normal respiratory effort Effort and Inspection: respiratory distress Cardio regular rate, regular rhythm, S1 normal heart sound, S2 normal heart sound and no murmurs Rate: Negative for bradycardia or tachycardic Rhythm: Negative for abnormal rhythm GI normal to inspection, nondistended, normoactive bowel sounds, soft to palpation, non-tender, non-distended and no masses; Negative for hepatosplenomegaly Auscultation: Negative for hyperactive bowel sounds Palpation: Negative for splenomegaly Back/Spine no CVA tenderness General Back: Negative for CVA tenderness Extremity normal to inspection General Extremety ED: Negative for edema or tenderness General Extremity: Negative for edema Neuro oriented x3 Sensorium / Orientation: awake, oriented to person, oriented to place and oriented to time Motor Exam: strength 5/5 throughout Psych mental status grossly normal Appearance: Negative for unkempt Attitude: No agitated Mood & Affect: Negative for depressed or tearful Skin no rashes or lesions noted and no wounds General Skin Exam: Negative for jaundice or pallor MDM MDM MDM Narrative Medical decision making narrative: 60-year-old female complaining of dyspnea. Recent hospitalization for COVID. Undergo cardiac work-up. Repeat exam patient is doing well at 4:45 PM. Had a long discussion with her and family member in the room. She has had a prior CTA which was negative. I think she needs to be placed back on steroids. Close follow-up. She knows to return if feeling worse. Lab Data Attestation: I reviewed the patient's lab results. Lab results narrative: CBC shows a white count of 10. Hemoglobin 9.7. Hematocrit 31. Platelets 235. Electrolytes unremarkable gap of 7 normal BUN and creatinine. Glucose 140 troponin 3. Labs: Laboratory Results - last 24 hr 03/03/21 03/03/21 14:30 14:30 WBC 10.7 RBC 3.42 L Hgb 9.7 L Hct 31.0 L MCV 90.6 MCH 28.4 MCHC 31.3 L RDW Std Deviation 44.6 H RDW Coeff of Ceci 13.5 Plt Count 235 MPV 9.6 Immature Gran % (Auto) 1.000 H Neut % (Auto) 85.6 H Lymph % (Auto) 6.8 L Geary % (Auto) 5.3 Eos % (Auto) 1.1 Baso % (Auto) 0.2 Absolute Neuts (auto) 9.1 H Absolute Lymphs (auto) 0.73 L Nucleated RBC % 0 Sodium 139 Potassium 3.6 Chloride 103 Carbon Dioxide 29.0 Anion Gap 7 BUN 12 Creatinine 0.89 Estim Creat Clear Calc 59.50 Est GFR (MDRD) Af Amer 84 Est GFR (MDRD) Non-Af 69 BUN/Creatinine Ratio 13.5 Glucose 140 H Calcium 8.9 Troponin I High Sens 3 Radiography Chest X-Ray - ED: 1 View, Read by ED Physician, Heart, Mediastinum, Bony Structures, No Acute Disease, Right Infiltrate and Left Infiltrate Diagnostic Testing: Clinical Impression(s) from Imaging Studies Chest X-Ray 03/03/21 15:04 IMPRESSION: Persistent bilateral pulmonary infiltrates. There has been essentially no change. Electronically Signed: Lorenzo Mcclellan MD at 15:18 EST , Service support , Chest x-ray portable, single view, interpreted by myself the radiologist shows bilateral infiltrates consistent with her prior chest x-ray 2 weeks ago when she had COVID pneumonitis. No significant change. Rhythm Strip Rhythm Strip: Sinus Rhythm Rate: 88 Ectopy: None EKG Initial EKG: Attestation: I personally reviewed and interpreted this EKG as follows: Interpretation: Sinus Rhythm and No Acute Injury Pattern Comments: Normal sinus rhythm rate 88 no acute signs of NV nor ischemia. Discharge Plan Triage Chief Complaint: Chest Pain ED Provider: Gasper Dai Dx/Rx/DC Orders Clinical Impression: COVID-19, Anemia Instructions: Human Coronaviruses Prescriptions: New dexamethasone [Decadron] 6 mg tablet 6 mg PO DAILY 9 Days Qty: 9 RF: 0 No Action dextromethorphan polistirex [Delsym 12 hour] 30 mg/5 mL Suspension,Extended Rel 12 Hr 10 ml PO Q12H RF: 0 dexamethasone 4 mg Tablet 6 mg PO DAILY Qty: 7 RF: 0 Eliquis 2.5 mg tablet 2.5 mg PO BID Qty: 28 RF: 0 dexamethasone [Decadron] 6 mg tablet 6 mg PO DAILY Qty: 7 RF: 0 Eliquis 2.5 mg tablet 2.5 mg PO BID Qty: 28 RF: 0 Primary Care Provider: Care Physician,No Primary Referrals: Altagracia Solitario [NON-STAFF] - 1 Week Care Physician,No Primary [Primary Care Provider] - Activity Restrictions/Additional Instructions: Plenty of fluids and rest. Alternate Motrin and Tylenol for pain and body aches. Fever and chills. Decadron daily to decrease inflammation in your lungs. Follow-up with your primary care provider to ensure you are improving or return to emergency department if feeling worse. Disposition Disposition: Home, Self Care
--- NOTE | 2021-03-03 15:04 | RAD_ITS ---
STUDY: X-RAY CHEST REASON FOR EXAM: Female, 60 years old. Chest pain TECHNIQUE: Single AP portable view of the chest. COMPARISON: Comparison is made with prior study dated 02/10/2021. FINDINGS: EKG electrodes are seen. Persistent bilateral pulmonary infiltrates. There have been essentially no change. There is no demonstrated pleural abnormality. Normal size heart. Normal mediastinum and verónica. Normal visualized pulmonary arteries. Normal visualized aortic arch and descending thoracic aorta. There are diffuse degenerative changes of the visualized thoracic spine. Normal visualized ribs, clavicles, and shoulders. There is no demonstrated abnormality of the visualized soft tissue structures of the upper abdomen. RAD/Chest 1 View (Portable) IMPRESSION: Persistent bilateral pulmonary infiltrates. There has been essentially no change. Electronically Signed: Lorenzo Mcclellan MD at 15:18 EST , Service support ,
[2021-03-03 15:09] LABS: Absolute Lymphocyte Count 0.73 X10^3/uL (0.83-4.51); Absolute Neutrophil Count 9.1 X10^3/uL (2.0-7.7); Basophil# 0.02 X10^3/uL; Basophil% 0.2 % (0-1); Eosinophil# 0.12 X10^3/uL; Eosinophils% 1.1 % (0-5); Hemoglobin 9.7 g/dL (12.0-15.0); Lymphocyte # 0.73 X10^3/ul (0.83-4.51); Lymphocyte % 6.8 % (19-41); Mean Corp Hgb Conc 31.3 g/dL (32-36); Mean Corpuscular Hgb 28.4 pg (27.0-32.0); Mean Corpuscular Volume 90.6 fL (81-99); Mean Platelet Vol. 9.6 fl (6.2-12.0); Monocyte# 0.56 X10^3/uL; Monocyte% 5.3 % (0-10); NRBC Flagged by Analyzer 0 % (0-5); Neutrophil # 9.12 X10^3/uL (2.7-7.7); Neutrophil % 85.6 % (47-70); Platelet Count 235 K/mm3 (150-450); RBC Distribution Width CV 13.5 % (11.6-14.6); RBC Distribution Width SD 44.6 fl (35.1-43.9); Red Blood Count 3.42 M/mm3 (4.2-5.4); White Blood Count 10.7 K/mm3 (4.4-11.0)
[2021-03-03 15:33] LABS: Anion Gap 7 (5-15); BUN 12 mg/dL (7-18); BUN/Creat Ratio 13.5 RATIO (10-20); Calcium,Total 8.9 mg/dL (8.5-10.1); Chloride 103 mmol/L (98-107); Creatinine, Serum 0.89 mg/dL (0.55-1.02); EST Glomerular Filtration Rate 69 mL/min (>60); Est Glom Filt Rate - Afr Amer 84 mL/min (>60); Glucose 140 mg/dL (74-106); Potassium 3.6 mmol/L (3.5-5.1); Sodium Level 139 mmol/L (136-145); Troponin-I HS 3 pg/mL (3.0-54.0)
[2021-03-03] MEDS: Acetaminophen 325 MG Tablet 650 MG PO (15:34)
[2021-03-03] MEDS: dexAMETHasone 4 MG Tablet 6 MG PO (17:15)
== END 2021-03-03 17:19 | disposition home or self-care (01) ==
PROVIDERS: Emergency Provider Emergency Medicine; Visit Provider Emergency Medicine
DX: U07.1 COVID-19 (principal); D64.9 Anemia, unspecified; E66.9 Obesity, unspecified
CPT/HCPCS: 71045; 80048; 84484; 85025; 93005; 99285; A4216